=== PATIENT | male | born 1990 | race African-American/Black ===

== ENCOUNTER 2021-02-11 21:53 | Emergency (ER) | payer BC ==
[~2021-02-11] VITALS: Ht 172.7 cm; Wt 68.0 kg
[2021-02-11] MEDS ORDERED: PROAIR HFA8.5 GM INH (22:24)
[2021-02-11 22:40] VITALS: BP 139/72
== END 2021-02-11 22:40 | disposition home or self-care (01) ==
LOC: ER 21:53
DX: J45.901 Unspecified asthma with (acute) exacerbation (principal)